=== PATIENT | male | born 1995 | race Caucasian/White ===

== ENCOUNTER 2018-04-23 20:50 | Emergency (ER) | payer OTHER, SELFPAY ==
[2018-04-23] MEDS: IBUPROFEN 800 MG TAB PO (22:37)
== END 2018-04-23 22:41 | disposition home or self-care (01) ==
LOC: M ED 20:50
DX: S93.402A Sprain of unspecified ligament of left ankle, initial encounter (principal); V80.42XA Occupant of animal-drawn vehicle injured in collision with car, pick-up truck, van, heavy transport vehicle or bus, initial encounter; Y92.410 Unspecified street and highway as the place of occurrence of the external cause
CPT/HCPCS: 73590

== ENCOUNTER 2018-05-10 10:04 | Observation (INO) | payer OTHER ==
[2018-05-10] MEDS ORDERED: dexameTHASONE 10 MG/1 ML VIAL PRES.FREE (J1100) (10:05)
[2018-05-10] MEDS ORDERED: ROPIvacaine 0.5% 30 ML INJECTION (J2795 PER 1MG) (10:05)
[2018-05-10] MEDS ORDERED: EPINEPHrine INJ 1 MG/ML 1ML AMP (10:05)
[2018-05-10] MEDS: LR 1,000 ML IV ×2 (10:15→22:20)
[2018-05-10] MEDS ORDERED: MIDAZOLAM INJ 2 MG/2 ML VIAL (J2250) As Ordered ×2 (11:35→13:52)
[2018-05-10] MEDS ORDERED: fentaNYL 100 MCG/2 ML INJECTION (J3010) As Ordered (11:35)
[2018-05-10] MEDS: fentaNYL 100 MCG/2 ML INJECTION (J3010) IV (12:50)
[2018-05-10] MEDS: MIDAZOLAM INJ 2 MG/2 ML VIAL (J2250) IV (12:51)
[2018-05-10] MEDS: ceFAZolin 2 GM/D5W 50 ML IV BAG (J0690 PER 500MG) As Ordered ×3 (13:51→21:51)
[2018-05-10] MEDS ORDERED: dexameTHASONE 4 MG/ML 1ML VIAL (J1100) As Ordered (13:52)
[2018-05-10] MEDS ORDERED: fentaNYL 250 MCG/5 ML INJECTION (J3010) As Ordered (13:52)
[2018-05-10] MEDS ORDERED: LIDOCAINE 2% INJ 100 MG/5 ML SDV (FOR ANES.) As Ordered (13:52)
[2018-05-10] MEDS ORDERED: ROCURONIUM BROMIDE 50 MG/5 ML VIAL As Ordered ×4 (13:52→19:02)
[2018-05-10] MEDS ORDERED: PROPOFOL 200 MG/20 ML VIAL As Ordered ×2 (13:52→14:42)
[2018-05-10] MEDS ORDERED: HYDROmorphone HCL 2 MG/ML 1ML VIAL (J1170) As Ordered (15:52)
[2018-05-10] MEDS ORDERED: LABETALOL HCL 100 MG/20 ML VIAL As Ordered (16:26)
[2018-05-10] MEDS ORDERED: PHENYLephrine HCL 500 MCG/5 ML (100MCG/ML) SYRINGE (J2370) As Ordered (17:00)
[2018-05-10] MEDS ORDERED: PHENYLEPHRINE INJ 10MG/ML VIAL (J2370) As Ordered (17:39)
[2018-05-10] MEDS ORDERED: SUGAMMADEX SODIUM 500 MG/5 ML VIAL (BRIDION) As Ordered (21:02)
[2018-05-10] MEDS ORDERED: KETOROLAC 60 MG/2 ML VIAL (J1885) As Ordered (21:16)
[2018-05-10] MEDS ORDERED: ONDANSETRON 4MG/2ML VIAL (J2405) As Ordered (21:16)
[2018-05-10] MEDS: BUPIVACAINE HCL 0.5% 30 ML VIAL As Ordered (21:52)
[2018-05-10] MEDS ORDERED: fentaNYL 100 MCG/2 ML INJECTION (J3010) IV (22:30)
[2018-05-10] MEDS ORDERED: ONDANSETRON 4MG/2ML VIAL (J2405) IV ×2 (22:30→23:00)
[2018-05-10] MEDS ORDERED: HYDROMORPHONE HCL 0.5 MG/ 0.5 ML SYRINGE (J1170 PER 1) IV (22:30)
[2018-05-10] MEDS ORDERED: PERCOCET 5MG/325MG TAB PO (22:30)
[2018-05-10] MEDS ORDERED: FLEET ENEMA PR (23:00)
[2018-05-10] MEDS ORDERED: LR 1,000 ML IV (23:00)
[2018-05-10] MEDS ORDERED: ACETAMINOPHEN TAB 650MG DOSE (2X325MG) PO (23:00)
[2018-05-11] MEDS: ASPIRIN 81 MG CHEW TABLET PO ×2 (09:15→20:37)
[2018-05-11] MEDS: VITAMIN D 1,000 INTERNATIONAL UNITS TABLET PO (09:16)
[2018-05-11] MEDS: oxyCODONE 5MG TAB PO ×3 (10:22→20:38)
[2018-05-12] MEDS: MORPHINE 4 MG/ML 1ML VIAL/SYRINGE (J2270) IV ×2 (00:01→03:19)
[2018-05-12] MEDS: oxyCODONE 5MG TAB PO ×3 (00:49→09:41)
[2018-05-12] MEDS: ASPIRIN 81 MG CHEW TABLET PO (09:39)
[2018-05-12] MEDS: VITAMIN D 1,000 INTERNATIONAL UNITS TABLET PO (09:39)
== END 2018-05-12 11:50 | disposition home or self-care (01) ==
LOC: M SDC 10:04 → M MS5PR 23:04
DX: S93.325A Dislocation of tarsometatarsal joint of left foot, initial encounter (principal); S93.05XA Dislocation of left ankle joint, initial encounter; S92.102A Unspecified fracture of left talus, initial encounter for closed fracture; Y92.410 Unspecified street and highway as the place of occurrence of the external cause; Y93.9 Activity, unspecified
CPT/HCPCS: 28415

== ENCOUNTER 2020-05-25 19:45 | Emergency (ER) | payer OTHER ==
[~2020-05-25] VITALS: Ht 165.1 cm; Wt 64.6 kg
[2020-05-25] MEDS ORDERED: TETANUS IMMUNE GLOBULIN (HUMAN) 250 UNITS/ML SYRINGE (J1670)(90389) IM ONE (20:30)
[2020-05-25] MEDS ORDERED: INFANRIX VACCINE SYRINGE (DIPHTH/TET/ACEL PERTUS PEDIATRIC) (CPT 90700) IM ONE (20:30)
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
[2020-05-25] MEDS ORDERED: NS 1,000 ML IV SCH (21:23)
[2020-05-25 22:30] VITALS: BP 114/61
== END 2020-05-25 22:45 | disposition short-term general hospital (02) ==
LOC: M ED 19:45
DX: S06.369A Traumatic hemorrhage of cerebrum, unspecified, with loss of consciousness of unspecified duration, initial encounter (principal); V80.42XA Occupant of animal-drawn vehicle injured in collision with car, pick-up truck, van, heavy transport vehicle or bus, initial encounter; Y92.410 Unspecified street and highway as the place of occurrence of the external cause; M25.521 Pain in right elbow